=== PATIENT | female | born 1955 | race Caucasian/White ===

== ENCOUNTER 2018-02-19 05:41 | Day surgery (SDC) | payer OTHER ==
[~2018-02-19] VITALS: Ht 154.9 cm; Wt 47.2 kg
[~2018-02-19 05:41] MED LIST: CIPR-211 PO; FOLI-43 PO; LACT10SO6 PO; PRO40 PO; PROP10TA10 PO; SPIR50TA26 PO; TYC3 PO
[2018-02-19] MEDS ORDERED: CEFAZOLIN 1 GM IVPB PREMIX 50 ML IV ONE (06:49)
[2018-02-19] MEDS ORDERED: CEFAZOLIN SOD 1 GM/ ISO 50 ML PREMIX IV ONE (07:00)
[2018-02-19] MEDS ORDERED: NS IRRIG SOLN 1000 ML IR ONE (07:30)
[2018-02-19] MEDS ORDERED: MIDAZOLAM HCL 5 MG/5 ML VIAL IVP ONE (07:30)
[2018-02-19] MEDS ORDERED: PROPOFOL 200MG/ 20ML VIAL (DIPRIVAN) IV ONE (07:30)
[2018-02-19] MEDS ORDERED: NEOSTIGMINE METHYLSULFATE 1 MG/ML, 10 ML VIAL IVP ONE (07:30)
[2018-02-19] MEDS ORDERED: fentaNYL CITRATE/PF 100 MCG/2 ML AMP IVP ONE (07:30)
[2018-02-19] MEDS ORDERED: ROCURONIUM BROMIDE 10 MG/ML (ZEMURON) IV ONE (07:30)
[2018-02-19] MEDS ORDERED: GLYCOPYRROLATE 0.2 MG/ML VIAL IJ ONE (07:30)
[2018-02-19] MEDS ORDERED: SEVOFLURANE 15 MIN GAS INH ONE (07:30)
[2018-02-19] MEDS ORDERED: LR 1,000 ML IV.SOLN IV ONE (07:30)
[2018-02-19] MEDS ORDERED: BUPIVACAINE /PF 0.25% 30 ML VIAL INJ ONE (07:30)
[2018-02-19] MEDS ORDERED: DEXAMETHASONE SOD PHOSPHATE 4 MG/ML VIAL IVP ONE (07:30)
[2018-02-19] MEDS ORDERED: IOHEXOL 50 ML IV ONE (07:48)
[2018-02-19] MEDS ORDERED: fentaNYL CITRATE/PF 100 MCG/2 ML AMP IVP PRN ×2 (08:15)
[2018-02-19] MEDS ORDERED: ONDANSETRON HCL 4 MG/2 ML VIAL IVP PRN (08:15)
[2018-02-19] MEDS ORDERED: D5/0.45 NS 1,000 ML IV SCH (09:03)
[2018-02-19] MEDS ORDERED: HYDROmorphone 1 MG INJ. 1 MG/ML AMPUL IVP PRN (09:15)
[2018-02-19] MEDS ORDERED: HYDROcodone/ACETAMIN 5-325 MG TAB (NORCO/ VICODIN) PO PRN ×2 (09:15)
[2018-02-19 10:07] VITALS: BP_SYST 134
== END 2018-02-19 11:50 | disposition home or self-care (01) ==
LOC: SDS 05:41 → SMU 05:41 → SDS 11:50
PROVIDERS: ATTEND Colon & Rectal Surgery
DX: K80.12 Calculus of gallbladder with acute and chronic cholecystitis without obstruction (principal); K74.69 Other cirrhosis of liver; F40.240 Claustrophobia; E53.8 Deficiency of other specified B group vitamins; E55.9 Vitamin D deficiency, unspecified; N18.4 Chronic kidney disease, stage 4 (severe); Z98.890 Other specified postprocedural states; Z90.49 Acquired absence of other specified parts of digestive tract; Z79.899 Other long term (current) drug therapy
CPT/HCPCS: 47379; 47563; 76000; 88304; 88307; 88313; C1727; C1758; J0690; J1100; J2250; J2704; J2710; J3010; J3490 ×2; J7120; Q9967

== ENCOUNTER 2019-05-24 07:27 | Inpatient (IN) | payer OTHER ==
[~2019-05-24] VITALS: Ht 154.9 cm; Wt 48.1 kg
[~2019-05-24 07:27] MED LIST changes: -SPIR50TA26 PO; +SPIR50TA5 PO
[2019-05-24 07:35] VITALS: BP_SYST 148
[2019-05-24] MEDS ORDERED: NACL 0.9% 1,000 ML IV ONE ×2 (07:45→08:30)
[2019-05-24] MEDS ORDERED: ONDANSETRON HCL 4 MG/2 ML VIAL IVP ONE (07:45)
[2019-05-24 08:00] LABS: BASOPHILS % (AUTO) 0.2 % (0.0-2.0); HEMATOCRIT 38.3 % (36-48); LYMPHOCYTES # (AUTO) 0.7 K/uL (1.0-5.5); LYMPHOCYTES % (AUTO) 6.5 % (20.5-51.5); MEAN CORPUSCULAR HEMOGLOBIN 32 pg (27-31); MEAN CORPUSCULAR HGB CONC 34 % (32-36); MEAN CORPUSCULAR VOLUME 95 fL (79.0-98.0); MONOCYTES # (AUTO) 0.6 K/uL (0.0-1.0); MONOCYTES % (AUTO) 5.7 % (1.7-9.3); NEUTROPHILS # (AUTO) 9.2 K/uL (1.8-7.7); NEUTROPHILS % (AUTO) 87.6 % (40.0-70.0); PLATELET COUNT (AUTO) 207 K/uL (130-430); RED BLOOD CELL COUNT(AUTO) 4.03 MIL/uL (4.2-6.2); RED CELL DISTRIBUTION WIDTH 13.4 % (9.0-15.0); WHITE BLOOD COUNT (AUTO) 10.5 K/uL (4.8-10.8)
[2019-05-24 08:15] LABS: CALCIUM 9.6 mg/dL (8.4-11.0); CREATININE 1.08 mg/dL (0.55-1.30); POTASSIUM 3.7 mmol/L (3.5-5.1)
[2019-05-24 08:19] LABS: ALBUMIN 4.4 g/dL (3.4-4.8)
[2019-05-24] MEDS ORDERED: MORPHINE 4 MG/ML INJ. SYRINGE IVP ONE (08:30)
[2019-05-24] MEDS ORDERED: THIA100T70 PO (08:55)
[2019-05-24] MEDS ORDERED: FERR140T2 PO (08:55)
[2019-05-24] MEDS ORDERED: VITD2000 PO (08:55)
[2019-05-24] MEDS ORDERED: CIPR-211 PO (08:55)
[2019-05-24] MEDS ORDERED: CYAN100010 PO (08:55)
[2019-05-24] MEDS ORDERED: METOCLOPRAMIDE HCL 10 MG/2 ML VIAL IVP PRN (10:00)
[2019-05-24 10:02] VITALS: BP_SYST 126
[2019-05-24 10:08] LABS: PROTHROMBIN TIME 9.8 SECS (9.5-12.5)
[2019-05-24] MEDS ORDERED: GASTROGRAFIN 120 ML ONE (11:02)
[2019-05-24] MEDS: ONDANSETRON HCL 4 MG/2 ML VIAL IVP PRN ×2 (13:01→20:34)
[2019-05-24] MEDS: D5NS 1,000 ML IV SCH ×2 (13:04→23:10)
[2019-05-24 20:00] VITALS: BP_SYST 155
[2019-05-24] MEDS: MORPHINE 4 MG/ML INJ. SYRINGE IVP PRN (20:33)
[2019-05-24] MEDS ORDERED: PIPERACILLIN/TAZOBACTAM 3.375 GM/VIAL (ZOSYN) IV ONE (23:04)
[2019-05-24] MEDS: PIPERACILLIN/TAZO 3.375/DEX-IS 50 ML IV SCH (23:10)
[2019-05-25 00:45] VITALS: BP_SYST 125
[2019-05-25 01:10] LABS: BILIRUBIN,URINE NEGATIVE (NEGATIVE); BLOOD, URINE 1+ (NEGATIVE); CLARITY/URINE CLEAR (CLEAR); COLOR,URINE YELLOW (YELLOW); GLUCOSE,URINE NEGATIVE (NEGATIVE); KETONES,URINE 1+ (NEGATIVE); LEUKOCYTE ESTERASE ,URINE NEGATIVE (NEGATIVE); NITRITE, URINE NEGATIVE (NEGATIVE); PROTEIN URINE 2+ (NEGATIVE); UROBILINOGEN,URINE 0.2 (0.2-1.0)
[2019-05-25 01:20] LABS: BACTERIA,URINE FEW /HPF (None Seen); WBC,URINE 0-3 /HPF (0-3)
[2019-05-25 01:21] LABS: HYALINE CASTS, URINE 0-10 /LPF (None Seen)
[2019-05-25] MEDS: D5NS 1,000 ML IV SCH ×4 (01:59→21:42)
[2019-05-25] MEDS: PIPERACILLIN/TAZO 3.375/DEX-IS 50 ML IV SCH ×4 (05:05→21:42)
[2019-05-25] MEDS: MORPHINE 4 MG/ML INJ. SYRINGE IVP PRN ×2 (06:56→19:50)
[2019-05-25 07:28] LABS: BASOPHILS % (AUTO) 0.2 % (0.0-2.0); EOSINOPHILS % (AUTO) 0.1 % (0.0-4.0); HEMATOCRIT 37.6 % (36-48); HEMOGLOBIN 12.6 g/dL (12.0-16.0); LYMPHOCYTES # (AUTO) 0.7 K/uL (1.0-5.5); LYMPHOCYTES % (AUTO) 7.7 % (20.5-51.5); MEAN CORPUSCULAR HEMOGLOBIN 32 pg (27-31); MEAN CORPUSCULAR HGB CONC 34 % (32-36); MEAN CORPUSCULAR VOLUME 95 fL (79.0-98.0); MONOCYTES # (AUTO) 0.8 K/uL (0.0-1.0); MONOCYTES % (AUTO) 8.7 % (1.7-9.3); NEUTROPHILS # (AUTO) 7.4 K/uL (1.8-7.7); NEUTROPHILS % (AUTO) 83.3 % (40.0-70.0); PLATELET COUNT (AUTO) 172 K/uL (130-430); RED BLOOD CELL COUNT(AUTO) 3.96 MIL/uL (4.2-6.2); RED CELL DISTRIBUTION WIDTH 13.5 % (9.0-15.0); WHITE BLOOD COUNT (AUTO) 8.8 K/uL (4.8-10.8)
[2019-05-25 08:18] LABS: ALBUMIN 3.2 g/dL (3.4-4.8); CALCIUM 8.6 mg/dL (8.4-11.0); POTASSIUM 3.6 mmol/L (3.5-5.1); TOTAL BILIRUBIN 1.2 mg/dL (0.0-1.0)
[2019-05-25 08:24] VITALS: BP_SYST 119
[2019-05-25] MEDS ORDERED: ePHEDrine sulfate 50 MG/ML VIAL IVP ONE (11:20)
[2019-05-25] MEDS ORDERED: ONDANSETRON HCL 4 MG/2 ML VIAL IVP ONE (11:20)
[2019-05-25] MEDS ORDERED: fentaNYL CITRATE/PF 100 MCG/2 ML AMP IVP ONE (11:20)
[2019-05-25] MEDS ORDERED: PROPOFOL 200MG/ 20ML VIAL (DIPRIVAN) IV ONE (11:20)
[2019-05-25] MEDS ORDERED: GLYCOPYRROLATE 0.2 MG/ML VIAL IJ ONE (11:20)
[2019-05-25] MEDS ORDERED: NEOSTIGMINE METHYLSULFATE 1 MG/ML, 10 ML VIAL IVP ONE (11:20)
[2019-05-25] MEDS ORDERED: MIDAZOLAM HCL 5 MG/5 ML VIAL IVP ONE (11:20)
[2019-05-25] MEDS ORDERED: LR 1,000 ML IV.SOLN IV ONE (11:20)
[2019-05-25] MEDS ORDERED: NS IRRIG SOLN 1000 ML IR ONE (11:20)
[2019-05-25] MEDS ORDERED: BUPIVACAINE /PF 0.25% 30 ML VIAL INJ ONE (11:20)
[2019-05-25] MEDS ORDERED: ROCURONIUM BROMIDE 10 MG/ML (ZEMURON) IV ONE (11:20)
[2019-05-25] MEDS ORDERED: SEVOFLURANE 15 MIN GAS INH ONE (11:20)
[2019-05-25] MEDS ORDERED: fentaNYL CITRATE 250 MCG/5 ML AMP IV ONE (11:20)
[2019-05-25] MEDS ORDERED: BUPIVACAINE LIPOSOME/PF 266 MG/20 ML VIAL INFIL ONE (12:38)
[2019-05-25] MEDS ORDERED: LR 1,000 ML IV SCH (13:06)
[2019-05-25] MEDS ORDERED: METOCLOPRAMIDE HCL 10 MG/2 ML VIAL IVP PRN (13:15)
[2019-05-25] MEDS ORDERED: MORPHINE 4 MG/ML INJ. SYRINGE IVP PRN ×3 (13:15)
[2019-05-25 15:15] VITALS: BP_SYST 118
[2019-05-25 20:00] VITALS: BP_SYST 112
[2019-05-26] MEDS: MORPHINE 4 MG/ML INJ. SYRINGE IVP PRN ×3 (00:13→14:16)
[2019-05-26 00:58] VITALS: BP_SYST 108
[2019-05-26] MEDS: PIPERACILLIN/TAZO 3.375/DEX-IS 50 ML IV SCH ×3 (05:05→22:44)
[2019-05-26] MEDS: MORPHINE 2 MG/ML INJ. SYRINGE IVP PRN ×2 (05:08→18:27)
[2019-05-26 07:18] LABS: BASOPHILS % (AUTO) 0.4 % (0.0-2.0); EOSINOPHILS % (AUTO) 1.1 % (0.0-4.0); HEMATOCRIT 31.2 % (36-48); HEMOGLOBIN 10.5 g/dL (12.0-16.0); LYMPHOCYTES # (AUTO) 0.5 K/uL (1.0-5.5); LYMPHOCYTES % (AUTO) 13.1 % (20.5-51.5); MEAN CORPUSCULAR HEMOGLOBIN 33 pg (27-31); MEAN CORPUSCULAR HGB CONC 34 % (32-36); MEAN CORPUSCULAR VOLUME 96 fL (79.0-98.0); MONOCYTES # (AUTO) 0.4 K/uL (0.0-1.0); MONOCYTES % (AUTO) 11.3 % (1.7-9.3); NEUTROPHILS # (AUTO) 2.9 K/uL (1.8-7.7); NEUTROPHILS % (AUTO) 74.1 % (40.0-70.0); PLATELET COUNT (AUTO) 128 K/uL (130-430); RED BLOOD CELL COUNT(AUTO) 3.24 MIL/uL (4.2-6.2); RED CELL DISTRIBUTION WIDTH 13.3 % (9.0-15.0)
[2019-05-26 07:40] LABS: CALCIUM 7.5 mg/dL (8.4-11.0); CREATININE 0.9 mg/dL (0.55-1.30); POTASSIUM 3.6 mmol/L (3.5-5.1); TOTAL BILIRUBIN 1.2 mg/dL (0.0-1.0)
[2019-05-26 08:02] VITALS: BP_SYST 92
[2019-05-26] MEDS: D5NS 1,000 ML IV SCH ×2 (08:36→17:34)
[2019-05-26 12:48] VITALS: BP_SYST 91
[2019-05-26 16:34] VITALS: BP_SYST 114
[2019-05-26 20:00] VITALS: BP_SYST 128
[2019-05-27 00:01] VITALS: BP_SYST 125
[2019-05-27] MEDS: MORPHINE 2 MG/ML INJ. SYRINGE IVP PRN ×2 (00:42→12:51)
[2019-05-27] MEDS: D5NS 1,000 ML IV SCH ×3 (02:49→21:21)
[2019-05-27 05:00] VITALS: BP_SYST 116
[2019-05-27 05:51] LABS: BASOPHILS % (AUTO) 0.1 % (0.0-2.0); HEMATOCRIT 28.3 % (36-48); HEMOGLOBIN 9.5 g/dL (12.0-16.0); LYMPHOCYTES # (AUTO) 0.6 K/uL (1.0-5.5); MEAN CORPUSCULAR HEMOGLOBIN 32 pg (27-31); MEAN CORPUSCULAR HGB CONC 34 % (32-36); MEAN CORPUSCULAR VOLUME 96 fL (79.0-98.0); MONOCYTES # (AUTO) 0.5 K/uL (0.0-1.0); MONOCYTES % (AUTO) 10.9 % (1.7-9.3); NEUTROPHILS # (AUTO) 3.4 K/uL (1.8-7.7); PLATELET COUNT (AUTO) 122 K/uL (130-430); RED BLOOD CELL COUNT(AUTO) 2.94 MIL/uL (4.2-6.2); RED CELL DISTRIBUTION WIDTH 13.1 % (9.0-15.0); WHITE BLOOD COUNT (AUTO) 4.6 K/uL (4.8-10.8)
[2019-05-27 06:14] LABS: CALCIUM 7.6 mg/dL (8.4-11.0); CREATININE 0.94 mg/dL (0.55-1.30); POTASSIUM 3.2 mmol/L (3.5-5.1); TOTAL BILIRUBIN 0.9 mg/dL (0.0-1.0)
[2019-05-27 08:15] VITALS: BP_SYST 109
[2019-05-27 12:17] VITALS: BP_SYST 121
[2019-05-27] MEDS: PIPERACILLIN/TAZO 3.375/DEX-IS 50 ML IV SCH ×2 (14:12→21:24)
[2019-05-27 16:49] VITALS: BP_SYST 124
[2019-05-27] MEDS ORDERED: POTASSIUM CHLORIDE 20 MEQ TAB.PRT.SR PO ONE (19:00)
[2019-05-27] MEDS ORDERED: IBUPROFEN 200 MG TABLET PO SCH (19:00)
[2019-05-27 20:18] VITALS: BP_SYST 149
[2019-05-27] MEDS: SUCRALFATE 1 GM TABLET PO SCH (21:22)
[2019-05-27] MEDS: HYDROcodone/ACETAMIN 5-325 MG TAB (NORCO/ VICODIN) PO PRN (21:23)
[2019-05-28 00:59] VITALS: BP_SYST 137
[2019-05-28] MEDS: D5NS 1,000 ML IV SCH ×3 (01:59→16:46)
[2019-05-28] MEDS: ONDANSETRON HCL 4 MG/2 ML VIAL IVP PRN ×2 (03:29→12:02)
[2019-05-28] MEDS: PIPERACILLIN/TAZO 3.375/DEX-IS 50 ML IV SCH (05:12)
[2019-05-28] MEDS: SUCRALFATE 1 GM TABLET PO SCH ×4 (06:26→20:56)
[2019-05-28 07:30] VITALS: BP_SYST 143
[2019-05-28 10:46] LABS: CALCIUM 8.1 mg/dL (8.4-11.0); CREATININE 0.86 mg/dL (0.55-1.30)
[2019-05-28 10:49] LABS: POTASSIUM 2.8 mmol/L (3.5-5.1)
[2019-05-28] MEDS ORDERED: POTASSIUM CHLORIDE 20 MEQ TAB.PRT.SR PO ONE ×2 (11:30→16:00)
[2019-05-28 12:21] VITALS: BP_SYST 145
[2019-05-28 16:31] VITALS: BP_SYST 140
[2019-05-28 20:00] VITALS: BP_SYST 153
[2019-05-28] MEDS: HYDROcodone/ACETAMIN 5-325 MG TAB (NORCO/ VICODIN) PO PRN (23:21)
[2019-05-29 01:25] VITALS: BP_SYST 149
[2019-05-29 06:10] LABS: BASOPHILS % (AUTO) 0.3 % (0.0-2.0); EOSINOPHILS # (AUTO) 0.1 K/uL (0.0-0.4); EOSINOPHILS % (AUTO) 1.5 % (0.0-4.0); HEMATOCRIT 29.5 % (36-48); HEMOGLOBIN 10.1 g/dL (12.0-16.0); LYMPHOCYTES # (AUTO) 0.8 K/uL (1.0-5.5); LYMPHOCYTES % (AUTO) 17.4 % (20.5-51.5); MEAN CORPUSCULAR HEMOGLOBIN 32 pg (27-31); MEAN CORPUSCULAR HGB CONC 34 % (32-36); MEAN CORPUSCULAR VOLUME 94 fL (79.0-98.0); MONOCYTES # (AUTO) 0.5 K/uL (0.0-1.0); MONOCYTES % (AUTO) 10.5 % (1.7-9.3); NEUTROPHILS # (AUTO) 3.1 K/uL (1.8-7.7); NEUTROPHILS % (AUTO) 70.3 % (40.0-70.0); PLATELET COUNT (AUTO) 192 K/uL (130-430); RED BLOOD CELL COUNT(AUTO) 3.15 MIL/uL (4.2-6.2); RED CELL DISTRIBUTION WIDTH 12.8 % (9.0-15.0); WHITE BLOOD COUNT (AUTO) 4.4 K/uL (4.8-10.8)
[2019-05-29] MEDS: D5NS 1,000 ML IV SCH (06:30)
[2019-05-29 06:33] LABS: CREATININE 0.75 mg/dL (0.55-1.30); POTASSIUM 3.2 mmol/L (3.5-5.1); TOTAL BILIRUBIN 0.5 mg/dL (0.0-1.0)
[2019-05-29] MEDS ORDERED: PANTOPRAZOLE SODIUM 40 MG TAB PO SCH (09:00)
[2019-05-29 09:01] VITALS: BP_SYST 146
[2019-05-29 11:24] VITALS: BP_SYST 141
[2019-05-29] MEDS: POTASSIUM CHLORIDE 20 MEQ TAB.PRT.SR PO SCH ×2 (11:56→14:57)
[2019-05-29 15:50] VITALS: BP_SYST 138
[2019-05-29] MEDS ORDERED: BISACODYL 10 MG/SUPPOSITORY RC ONE (17:45)
[2019-05-29 18:24] VITALS: BP_SYST 138
== END 2019-05-29 19:33 | disposition home or self-care (01) | DRG 331 ==
LOC: SED 07:27 → SMU 09:28
PROVIDERS: ADMIT Internal Medicine Hospice and Palliative Medicine; ATTEND Internal Medicine Hospice and Palliative Medicine
PROC: 0DJD4ZZ Inspection of Lower Intestinal Tract, Percutaneous Endoscopic Approach (ICD-10-PCS; 2019-05-25)
PROC: 0DTF0ZZ Resection of Right Large Intestine, Open Approach (ICD-10-PCS; principal; 2019-05-25 11:21)
DX: K56.609 Unspecified intestinal obstruction, unspecified as to partial versus complete obstruction (principal); K74.60 Unspecified cirrhosis of liver; K43.2 Incisional hernia without obstruction or gangrene; K21.9 Gastro-esophageal reflux disease without esophagitis; K56.2 Volvulus; Z53.31 Laparoscopic surgical procedure converted to open procedure; Z90.49 Acquired absence of other specified parts of digestive tract; Z79.899 Other long term (current) drug therapy
CPT/HCPCS: 36415; 71045; 74250-TC; 80048; 80053; 81000-TC; 83690-TC; 85025; 85610-TC; 85730-TC; 86886; 86900; 86901; 87081; 88307; 93005; 96361; 96374; 96375; 99285; C1727; C9290; J2250; J2270; J2405; J2543; J2704; J2710; J3010; J3490; J7030; J7042; J7120; Q9963

== ENCOUNTER 2024-08-15 14:54 | Inpatient (IN) | payer BC, OTHER ==
[~2024-08-15] VITALS: Ht 154.9 cm; Wt 49.0 kg
[~2024-08-15 14:54] MED LIST changes: -CIPR-211 PO; +CIPR500T5 PO; +CYAN100010 PO; +FERR140T2 PO; +THIA100T70 PO; -TYC3 PO; +VITD2000 PO
[2024-08-15 15:00] VITALS: BP_SYST 148; PULSE 81; RESP 20; TEMP 97.3; O2SAT 98
[2024-08-15 15:50] LABS: BASOPHILS # (AUTO) 0.1 K/uL (0.0-0.2); BASOPHILS % (AUTO) 1.2 % (0.0-2.0); EOSINOPHILS % (AUTO) 0.2 % (0.0-4.0); HEMATOCRIT 32.2 % (36-48); HEMOGLOBIN 11.3 g/dL (12.0-16.0); LYMPHOCYTES # (AUTO) 0.7 K/uL (1.0-5.5); LYMPHOCYTES % (AUTO) 8.8 % (20.5-51.5); MEAN CORPUSCULAR HEMOGLOBIN 33 pg (27-31); MEAN CORPUSCULAR HGB CONC 35 % (32-36); MEAN CORPUSCULAR VOLUME 93 fL (79.0-98.0); MONOCYTES # (AUTO) 0.2 K/uL (0.0-1.0); MONOCYTES % (AUTO) 2.6 % (1.7-9.3); NEUTROPHILS # (AUTO) 6.9 K/uL (1.8-7.7); NEUTROPHILS % (AUTO) 87.2 % (40.0-70.0); PLATELET COUNT (AUTO) 250 K/uL (130-430); RED BLOOD CELL COUNT(AUTO) 3.47 MIL/uL (4.2-6.2); RED CELL DISTRIBUTION WIDTH 12.6 % (9.0-15.0); WHITE BLOOD COUNT (AUTO) 7.9 K/uL (4.8-10.8)
[2024-08-15 15:59] LABS: BILIRUBIN,URINE 1+ (NEGATIVE); BLOOD, URINE NEGATIVE (NEGATIVE); CLARITY/URINE CLEAR (CLEAR); COLOR,URINE YELLOW (YELLOW); GLUCOSE,URINE NEGATIVE (NEGATIVE); KETONES,URINE 2+ (NEGATIVE); LEUKOCYTE ESTERASE ,URINE NEGATIVE (NEGATIVE); NITRITE, URINE NEGATIVE (NEGATIVE); PROTEIN URINE TRACE (NEGATIVE); UROBILINOGEN,URINE 0.2 (0.2-1.0)
[2024-08-15 16:05] LABS: PROTHROMBIN TIME 10.3 SECS (9.5-12.5)
[2024-08-15 16:12] LABS: ALANINE AMINOTRANSFERASE 24 U/L (12-78); ALBUMIN 4.6 g/dL (3.4-4.8); AMYLASE 84 U/L (0-100); ANION GAP 16 (5-15); ASPARTATE AMINOTRANSFERASE 30 U/L (10-37); BILIRUBIN,DIRECT 0.2 mg/dL (0.0-0.3); CALCIUM 9.7 mg/dL (8.4-11.0); CARBON DIOXIDE 20 mmol/L (23-29); CHLORIDE 103 mmol/L (98-107); CREATININE 1.73 mg/dL (0.55-1.30); GFR AFRICAN AMERICAN 38 mL/min (>90); GLUCOSE 123 mg/dL (74-106); LIPASE 89 U/L (16-77); POTASSIUM 4.8 mmol/L (3.5-5.1); SODIUM SERUM 139 mmol/L (136-145); TOTAL BILIRUBIN 0.7 mg/dL (0.0-1.0); UREA NITROGEN, BLOOD 32 mg/dL (8-21)
[2024-08-15 16:13] LABS: GFR NON AFRICAN-AMERICAN 31 mL/min (>90)
[2024-08-15 16:43] LABS: BACTERIA,URINE RARE /HPF (None Seen); RBC,URINE NONE SEEN /HPF (0-3); WBC,URINE 0-3 /HPF (0-3)
[2024-08-15 16:44] LABS: FINE GRANULAR CASTS,URINE 0-10 /LPF (None Seen); MUCUS,URINE 1+ /LPF (None Seen)
[2024-08-15] MEDS ORDERED: MAGNESIUM SULFATE 50 ML IV PRN (17:15)
[2024-08-15] MEDS ORDERED: MUPIROCIN 2% TOPICAL OINTMENT 22 GM NS PRN (17:15)
[2024-08-15] MEDS ORDERED: ZOLPIDEM TARTRATE 5 MG TABLET PO PRN (17:15)
[2024-08-15] MEDS ORDERED: DOCUSATE SODIUM 100 MG CAPSULE PO PRN (17:15)
[2024-08-15] MEDS ORDERED: POTASSIUM CHLORIDE 20 MEQ TABLET.ER PO PRN (17:15)
[2024-08-15] MEDS ORDERED: LORazepam 2 MG/ML VIAL IVP PRN (17:15)
[2024-08-15] MEDS ORDERED: cloNIDine HCL 0.2 MG TABLET PO PRN (17:30)
[2024-08-15] MEDS ORDERED: LISI-209 PO (17:43)
[2024-08-15] MEDS ORDERED: ACETAMINOPHEN 500 MG TABLET PO PRN ×2 (17:45)
[2024-08-15] MEDS: NACL 0.9% 1,000 ML IV ONE (17:48)
[2024-08-15] MEDS: MORPHINE 2 MG/ML INJ. SYRINGE IVP ONE (17:48)
[2024-08-15] MEDS: D5NS 1,000 ML IV SCH (18:34)
[2024-08-15] MEDS: HEPARIN SODIUM,PORCINE 5,000 UNITS/ML VIAL SUBCUT SCH (23:00)
[2024-08-15] MEDS ORDERED: GASTROGRAFIN 120 ML ONE (23:09)
[2024-08-16 00:43] VITALS: BP_SYST 109; PULSE 80; RESP 18; TEMP 98.1; O2SAT 100
[2024-08-16] MEDS: MORPHINE 2 MG/ML INJ. SYRINGE IVP PRN ×2 (01:17→08:46)
[2024-08-16] MEDS: ONDANSETRON HCL 4 MG/2 ML VIAL IVP PRN (01:25)
[2024-08-16 05:36] LABS: BASOPHILS % (AUTO) 0.2 % (0.0-2.0); HEMATOCRIT 30.7 % (36-48); HEMOGLOBIN 10.5 g/dL (12.0-16.0); LYMPHOCYTES % (AUTO) 12.9 % (20.5-51.5); MEAN CORPUSCULAR HEMOGLOBIN 32 pg (27-31); MEAN CORPUSCULAR HGB CONC 34 % (32-36); MEAN CORPUSCULAR VOLUME 93 fL (79.0-98.0); MONOCYTES # (AUTO) 0.5 K/uL (0.0-1.0); MONOCYTES % (AUTO) 6.8 % (1.7-9.3); NEUTROPHILS # (AUTO) 6.1 K/uL (1.8-7.7); NEUTROPHILS % (AUTO) 80.1 % (40.0-70.0); PLATELET COUNT (AUTO) 221 K/uL (130-430); RED BLOOD CELL COUNT(AUTO) 3.31 MIL/uL (4.2-6.2); RED CELL DISTRIBUTION WIDTH 12.6 % (9.0-15.0); WHITE BLOOD COUNT (AUTO) 7.6 K/uL (4.8-10.8)
[2024-08-16 05:54] LABS: CREATININE 1.42 mg/dL (0.55-1.30); POTASSIUM 4.5 mmol/L (3.5-5.1)
[2024-08-16 08:00] VITALS: BP_SYST 135; PULSE 78; RESP 17; TEMP 98.7; O2SAT 98
[2024-08-16 12:00] VITALS: BP_SYST 156; PULSE 81; RESP 18; TEMP 98.3; O2SAT 99
[2024-08-16 16:00] VITALS: BP_SYST 127; PULSE 77; RESP 18; TEMP 98.4; O2SAT 99
[2024-08-16 20:00] VITALS: BP_SYST 157; PULSE 83; RESP 18; TEMP 97.8; O2SAT 99
[2024-08-17 07:58] LABS: BASOPHILS % (AUTO) 0.2 % (0.0-2.0); EOSINOPHILS % (AUTO) 0.1 % (0.0-4.0); HEMATOCRIT 34.9 % (36-48); HEMOGLOBIN 11.6 g/dL (12.0-16.0); LYMPHOCYTES # (AUTO) 0.9 K/uL (1.0-5.5); LYMPHOCYTES % (AUTO) 10.2 % (20.5-51.5); MEAN CORPUSCULAR HEMOGLOBIN 31 pg (27-31); MEAN CORPUSCULAR HGB CONC 33 % (32-36); MEAN CORPUSCULAR VOLUME 94 fL (79.0-98.0); MONOCYTES # (AUTO) 0.9 K/uL (0.0-1.0); MONOCYTES % (AUTO) 9.2 % (1.7-9.3); NEUTROPHILS # (AUTO) 7.5 K/uL (1.8-7.7); NEUTROPHILS % (AUTO) 80.3 % (40.0-70.0); PLATELET COUNT (AUTO) 270 K/uL (130-430); RED BLOOD CELL COUNT(AUTO) 3.72 MIL/uL (4.2-6.2); RED CELL DISTRIBUTION WIDTH 12.7 % (9.0-15.0); WHITE BLOOD COUNT (AUTO) 9.3 K/uL (4.8-10.8)
[2024-08-17 08:00] VITALS: BP_SYST 144; PULSE 80; RESP 18; TEMP 98.1; O2SAT 98
[2024-08-17 08:20] LABS: CALCIUM 9.1 mg/dL (8.4-11.0); CREATININE 1.62 mg/dL (0.55-1.30); POTASSIUM 5.2 mmol/L (3.5-5.1)
[2024-08-17 13:44] VITALS: BP_SYST 156; PULSE 76; RESP 20; TEMP 98.1; O2SAT 99
[2024-08-17] MEDS ORDERED: DEXTROSE 50% JECT 50 ML DISP.SYRIN IVP PRN (13:45)
[2024-08-17] MEDS ORDERED: *PPN PER PHARMACY XX PRN (13:45)
[2024-08-17] MEDS ORDERED: INSULIN REGULAR, HUMAN 100 UNITS/ML, 3 ML VIAL (humuLIN R) SUBCUT PRN (13:45)
[2024-08-17 17:23] VITALS: BP_SYST 145; PULSE 83; RESP 16; TEMP 98; O2SAT 99
[2024-08-17 20:00] VITALS: BP_SYST 153; PULSE 78; RESP 17; TEMP 97.8; O2SAT 99
[2024-08-18] VITALS: BP_SYST 149; PULSE 81; RESP 16; TEMP 97.6; O2SAT 98
[2024-08-18 06:59] LABS: BASOPHILS % (AUTO) 0.4 % (0.0-2.0); EOSINOPHILS % (AUTO) 0.4 % (0.0-4.0); HEMATOCRIT 33.3 % (36-48); HEMOGLOBIN 11.2 g/dL (12.0-16.0); LYMPHOCYTES # (AUTO) 0.9 K/uL (1.0-5.5); MEAN CORPUSCULAR HEMOGLOBIN 31 pg (27-31); MEAN CORPUSCULAR HGB CONC 34 % (32-36); MEAN CORPUSCULAR VOLUME 94 fL (79.0-98.0); MONOCYTES # (AUTO) 0.7 K/uL (0.0-1.0); MONOCYTES % (AUTO) 14.1 % (1.7-9.3); NEUTROPHILS # (AUTO) 3.3 K/uL (1.8-7.7); NEUTROPHILS % (AUTO) 66.1 % (40.0-70.0); PLATELET COUNT (AUTO) 242 K/uL (130-430); RED BLOOD CELL COUNT(AUTO) 3.56 MIL/uL (4.2-6.2); RED CELL DISTRIBUTION WIDTH 12.6 % (9.0-15.0); WHITE BLOOD COUNT (AUTO) 4.9 K/uL (4.8-10.8)
[2024-08-18 07:12] LABS: CALCIUM 8.8 mg/dL (8.4-11.0); CREATININE 1.39 mg/dL (0.55-1.30); PHOSPHORUS 2.5 mg/dL (2.7-4.5); POTASSIUM 4.4 mmol/L (3.5-5.1)
[2024-08-18 08:00] VITALS: BP_SYST 144; PULSE 85; RESP 16; TEMP 97.6; O2SAT 100
[2024-08-18 09:16] LABS: PROTHROMBIN TIME 10.3 SECS (9.5-12.5)
[2024-08-18 10:42] VITALS: O2SAT 100
[2024-08-18 12:37] VITALS: BP_SYST 144; PULSE 85; RESP 16; TEMP 97.6; O2SAT 100
[2024-08-18 15:25] VITALS: BP_SYST 136; PULSE 78; RESP 16; TEMP 97.4; O2SAT 97
[2024-08-18 16:01] LABS: INR 2.5 (0.8-1.2); PROTHROMBIN TIME 25.2 SECS (9.5-12.5)
[2024-08-18 20:00] VITALS: BP_SYST 149; PULSE 81; RESP 17; TEMP 98
[2024-08-18] MEDS: MVI IV SCH (22:41)
[2024-08-18] MEDS: TPN PERIPHERAL IV SCH (22:41)
[2024-08-18] MEDS: [UNRECOGNIZED DRUG - OTHER] IV SCH (22:41)
[2024-08-18] MEDS: K PHOS IV SCH (22:41)
[2024-08-18] MEDS: TRACE ELEMENTS IV SCH (22:41)
[2024-08-19] VITALS: BP_SYST 141; PULSE 79; RESP 16; TEMP 97.8; O2SAT 96
[2024-08-19 05:50] LABS: BASOPHILS % (AUTO) 0.4 % (0.0-2.0); EOSINOPHILS # (AUTO) 0.1 K/uL (0.0-0.4); EOSINOPHILS % (AUTO) 2.1 % (0.0-4.0); HEMATOCRIT 32.9 % (36-48); HEMOGLOBIN 10.9 g/dL (12.0-16.0); LYMPHOCYTES # (AUTO) 0.9 K/uL (1.0-5.5); LYMPHOCYTES % (AUTO) 22.2 % (20.5-51.5); MEAN CORPUSCULAR HEMOGLOBIN 31 pg (27-31); MEAN CORPUSCULAR HGB CONC 33 % (32-36); MEAN CORPUSCULAR VOLUME 94 fL (79.0-98.0); MONOCYTES # (AUTO) 0.8 K/uL (0.0-1.0); MONOCYTES % (AUTO) 20.3 % (1.7-9.3); NEUTROPHILS # (AUTO) 2.1 K/uL (1.8-7.7); PLATELET COUNT (AUTO) 234 K/uL (130-430); RED CELL DISTRIBUTION WIDTH 12.6 % (9.0-15.0); WHITE BLOOD COUNT (AUTO) 3.9 K/uL (4.8-10.8)
[2024-08-19 06:10] LABS: CALCIUM 8.7 mg/dL (8.4-11.0); CREATININE 1.38 mg/dL (0.55-1.30); POTASSIUM 3.5 mmol/L (3.5-5.1)
[2024-08-19 08:00] VITALS: BP_SYST 134; BP_SYST 139; PULSE 80; PULSE 89; RESP 17; RESP 18; TEMP 97.9; O2SAT 95; O2SAT 98
[2024-08-19 09:36] LABS: PROTHROMBIN TIME 10.2 SECS (9.5-12.5)
[2024-08-19] MEDS: PHYTONADIONE 10 MG in NS 50 ML IV ONE (09:45)
[2024-08-19] MEDS ORDERED: LIDOCAINE HCL/PF 1% 10 ML AMPUL INJ ONE (10:27)
[2024-08-19] MEDS ORDERED: ceFAZolin SODIUM 1 GM VIAL ONE (10:27)
[2024-08-19] MEDS ORDERED: ONDANSETRON HCL 4 MG/2 ML VIAL ONE (10:27)
[2024-08-19] MEDS ORDERED: NS IRRIG SOLN 1000 ML IR ONE (10:27)
[2024-08-19] MEDS ORDERED: DESFLURANE 15 MIN GAS INH ONE (10:27)
[2024-08-19] MEDS ORDERED: NS 1000 ML IV.SOLN IV ONE (10:27)
[2024-08-19] MEDS ORDERED: DEXAMETHASONE SOD PHOSPHATE 4 MG/ML VIAL ONE (10:27)
[2024-08-19] MEDS ORDERED: MIDAZOLAM HCL 2 MG/2 ML VIAL (VERSED) ONE (10:27)
[2024-08-19] MEDS ORDERED: PROPOFOL 200MG/ 20ML VIAL (DIPRIVAN) IV ONE (10:27)
[2024-08-19] MEDS ORDERED: LR 1,000 ML IV.SOLN IV ONE (10:27)
[2024-08-19] MEDS ORDERED: ROCURONIUM BROMIDE 10 MG/ML (ZEMURON) ONE (10:27)
[2024-08-19] MEDS ORDERED: fentaNYL CITRATE/PF 100 MCG/2 ML AMP ONE (10:27)
[2024-08-19] MEDS ORDERED: hydrALAZINE HCL 20 MG/ML VIAL IVP PRN (11:15)
[2024-08-19] MEDS ORDERED: LABETALOL 100 MG/ 20ML VIAL IVP PRN (11:15)
[2024-08-19] MEDS ORDERED: LR 1,000 ML IV SCH (11:15)
[2024-08-19] MEDS ORDERED: ONDANSETRON HCL 4 MG/2 ML VIAL IVP PRN (11:15)
[2024-08-19] MEDS ORDERED: MEPERIDINE HCL/PF 25 MG/ML DISP.SYRIN IVP PRN (11:15)
[2024-08-19] MEDS: PANTOPRAZOLE SODIUM 40 MG/VIAL (PROTONIX) IVP ONE (12:45)
[2024-08-19] MEDS: HYDROmorphone 2 MG/ML VIAL ONE (12:54)
[2024-08-19] MEDS: HYDROmorphone 1 MG/ML INJ. CARTRIDGE IVP PRN ×2 (12:55→13:45)
[2024-08-19 16:47] VITALS: BP_SYST 122; PULSE 90; RESP 18; TEMP 98.3; O2SAT 97
[2024-08-19 20:00] VITALS: BP_SYST 115; PULSE 76; RESP 18; TEMP 98.5; O2SAT 99
[2024-08-19] MEDS: FAT EMULSIONS 250 ML IV SCH (21:58)
[2024-08-19] MEDS: [UNRECOGNIZED DRUG - OTHER] IV SCH (22:00)
[2024-08-19] MEDS: POTASSIUM CHLORIDE IV SCH (22:00)
[2024-08-19] MEDS: TPN PERIPHERAL IV SCH (22:00)
[2024-08-19] MEDS: K PHOS IV SCH (22:00)
[2024-08-20 01:20] VITALS: BP_SYST 121; PULSE 76; RESP 17; TEMP 97.7; O2SAT 100
[2024-08-20 06:32] LABS: BASOPHILS % (AUTO) 0.1 % (0.0-2.0); EOSINOPHILS % (AUTO) 0.1 % (0.0-4.0); HEMATOCRIT 29.7 % (36-48); HEMOGLOBIN 10.1 g/dL (12.0-16.0); LYMPHOCYTES # (AUTO) 0.7 K/uL (1.0-5.5); LYMPHOCYTES % (AUTO) 15.3 % (20.5-51.5); MEAN CORPUSCULAR HEMOGLOBIN 32 pg (27-31); MEAN CORPUSCULAR HGB CONC 34 % (32-36); MEAN CORPUSCULAR VOLUME 94 fL (79.0-98.0); MONOCYTES # (AUTO) 0.8 K/uL (0.0-1.0); MONOCYTES % (AUTO) 18.6 % (1.7-9.3); NEUTROPHILS % (AUTO) 65.9 % (40.0-70.0); PLATELET COUNT (AUTO) 193 K/uL (130-430); RED BLOOD CELL COUNT(AUTO) 3.15 MIL/uL (4.2-6.2); RED CELL DISTRIBUTION WIDTH 12.6 % (9.0-15.0); WHITE BLOOD COUNT (AUTO) 4.5 K/uL (4.8-10.8)
[2024-08-20 06:47] LABS: CALCIUM 7.6 mg/dL (8.4-11.0); CREATININE 1.23 mg/dL (0.55-1.30); PHOSPHORUS 1.8 mg/dL (2.7-4.5); POTASSIUM 4.1 mmol/L (3.5-5.1)
[2024-08-20 08:20] VITALS: O2SAT 98
[2024-08-20] MEDS: PANTOPRAZOLE SODIUM 40 MG/VIAL (PROTONIX) IVP SCH (08:54)
[2024-08-20 09:10] VITALS: BP_SYST 122; PULSE 70; RESP 18; TEMP 97.8; O2SAT 99
[2024-08-20 13:53] VITALS: BP_SYST 125; PULSE 83; RESP 14; TEMP 98.9; O2SAT 98
[2024-08-20 14:34] LABS: ALBUMIN 2.5 g/dL (3.4-4.8); BILIRUBIN,DIRECT 0.1 mg/dL (0.0-0.3); TOTAL BILIRUBIN 0.4 mg/dL (0.0-1.0); TOTAL PROTEIN, SERUM 5.6 g/dL (6.4-8.3)
[2024-08-20 16:00] VITALS: BP_SYST 140; PULSE 80; RESP 14; TEMP 98.3; O2SAT 99
[2024-08-20 20:15] VITALS: BP_SYST 123; PULSE 72; RESP 18; TEMP 98; O2SAT 98
[2024-08-20] MEDS: [UNRECOGNIZED DRUG - OTHER] IV SCH (21:36)
[2024-08-20] MEDS: K PHOS IV SCH (21:36)
[2024-08-20] MEDS: POTASSIUM CHLORIDE IV SCH (21:36)
[2024-08-20] MEDS: TPN PERIPHERAL IV SCH (21:36)
[2024-08-21] VITALS (7 sets, daily range): BP systolic 91–136; PULSE 55–91; RESP 16–20; TEMP 97.2–98.9; O2SAT 97–100
[2024-08-21 07:17] LABS: ALBUMIN 2.5 g/dL (3.4-4.8); CALCIUM 7.3 mg/dL (8.4-11.0); CREATININE 0.92 mg/dL (0.55-1.30); PHOSPHORUS 1.2 mg/dL (2.7-4.5); POTASSIUM 3.1 mmol/L (3.5-5.1); TOTAL BILIRUBIN 0.5 mg/dL (0.0-1.0); TOTAL PROTEIN, SERUM 5.5 g/dL (6.4-8.3)
[2024-08-21] MEDS: POTASSIUM CHLORIDE 20 MEQ TABLET.ER PO ONE (13:54)
[2024-08-21] MEDS: POTASSIUM CHLORIDE IV SCH (22:11)
[2024-08-21] MEDS: SODIUM ACETATE IV SCH (22:11)
[2024-08-21] MEDS: [UNRECOGNIZED DRUG - OTHER] IV SCH (22:11)
[2024-08-21] MEDS: TPN PERIPHERAL IV SCH (22:11)
[2024-08-22] VITALS (7 sets, daily range): BP systolic 122–131; PULSE 79–97; RESP 14–22; TEMP 97–98.5; O2SAT 98–100
[2024-08-22 05:39] LABS: BASOPHILS % (AUTO) 0.5 % (0.0-2.0); EOSINOPHILS # (AUTO) 0.2 K/uL (0.0-0.4); EOSINOPHILS % (AUTO) 3.4 % (0.0-4.0); HEMATOCRIT 27.6 % (36-48); HEMOGLOBIN 9.5 g/dL (12.0-16.0); LYMPHOCYTES # (AUTO) 0.8 K/uL (1.0-5.5); LYMPHOCYTES % (AUTO) 18.2 % (20.5-51.5); MEAN CORPUSCULAR HEMOGLOBIN 32 pg (27-31); MEAN CORPUSCULAR HGB CONC 34 % (32-36); MEAN CORPUSCULAR VOLUME 92 fL (79.0-98.0); MONOCYTES # (AUTO) 0.7 K/uL (0.0-1.0); MONOCYTES % (AUTO) 15.2 % (1.7-9.3); NEUTROPHILS # (AUTO) 2.9 K/uL (1.8-7.7); NEUTROPHILS % (AUTO) 62.7 % (40.0-70.0); PLATELET COUNT (AUTO) 211 K/uL (130-430); RED BLOOD CELL COUNT(AUTO) 2.99 MIL/uL (4.2-6.2); RED CELL DISTRIBUTION WIDTH 12.6 % (9.0-15.0); WHITE BLOOD COUNT (AUTO) 4.7 K/uL (4.8-10.8)
[2024-08-22 06:30] LABS: ALBUMIN 2.3 g/dL (3.4-4.8); CALCIUM 7.1 mg/dL (8.4-11.0); CREATININE 0.83 mg/dL (0.55-1.30); PHOSPHORUS 2.3 mg/dL (2.7-4.5); POTASSIUM 3.7 mmol/L (3.5-5.1); TOTAL BILIRUBIN 0.5 mg/dL (0.0-1.0); TOTAL PROTEIN, SERUM 5.6 g/dL (6.4-8.3)
[2024-08-22] MEDS: POTASSIUM CHLORIDE IV SCH (21:59)
[2024-08-22] MEDS: [UNRECOGNIZED DRUG - OTHER] IV SCH (21:59)
[2024-08-22] MEDS: HEPARIN SODIUM,PORCINE 5,000 UNITS/ML VIAL SUBCUT SCH (21:59)
[2024-08-22] MEDS: TPN PERIPHERAL IV SCH (21:59)
[2024-08-22] MEDS: SODIUM ACETATE IV SCH (21:59)
[2024-08-23 00:11] VITALS: BP_SYST 124; PULSE 89; RESP 18; TEMP 97.1; O2SAT 99
[2024-08-23 05:46] LABS: BASOPHILS % (AUTO) 0.4 % (0.0-2.0); EOSINOPHILS # (AUTO) 0.2 K/uL (0.0-0.4); EOSINOPHILS % (AUTO) 2.9 % (0.0-4.0); HEMATOCRIT 27.9 % (36-48); HEMOGLOBIN 9.5 g/dL (12.0-16.0); LYMPHOCYTES # (AUTO) 0.7 K/uL (1.0-5.5); LYMPHOCYTES % (AUTO) 13.8 % (20.5-51.5); MEAN CORPUSCULAR HEMOGLOBIN 32 pg (27-31); MEAN CORPUSCULAR HGB CONC 34 % (32-36); MEAN CORPUSCULAR VOLUME 93 fL (79.0-98.0); MONOCYTES # (AUTO) 0.9 K/uL (0.0-1.0); MONOCYTES % (AUTO) 16.2 % (1.7-9.3); NEUTROPHILS # (AUTO) 3.6 K/uL (1.8-7.7); NEUTROPHILS % (AUTO) 66.7 % (40.0-70.0); PLATELET COUNT (AUTO) 243 K/uL (130-430); RED BLOOD CELL COUNT(AUTO) 3.01 MIL/uL (4.2-6.2); RED CELL DISTRIBUTION WIDTH 12.6 % (9.0-15.0); WHITE BLOOD COUNT (AUTO) 5.4 K/uL (4.8-10.8)
[2024-08-23 06:21] LABS: ALBUMIN 2.4 g/dL (3.4-4.8); CALCIUM 7.1 mg/dL (8.4-11.0); CREATININE 0.8 mg/dL (0.55-1.30); PHOSPHORUS 2.3 mg/dL (2.7-4.5); POTASSIUM 3.6 mmol/L (3.5-5.1); TOTAL BILIRUBIN 0.6 mg/dL (0.0-1.0); TOTAL PROTEIN, SERUM 5.6 g/dL (6.4-8.3)
[2024-08-23 08:00] VITALS: BP_SYST 118; PULSE 85; RESP 16; TEMP 97.9
[2024-08-23 08:30] VITALS: O2SAT 100
[2024-08-23] MEDS ORDERED: *TPN PER PHARMACY XX PRN (10:00)
[2024-08-23] MEDS: KCL 20 mEq in 100 mL (PREMIX) 100 ML IV ONE (13:09)
[2024-08-23 16:00] VITALS: BP_SYST 105; PULSE 97; RESP 16; TEMP 98.7
[2024-08-23 20:00] VITALS: BP_SYST 119; PULSE 81; RESP 18; TEMP 98.7; O2SAT 100
[2024-08-23] MEDS: [UNRECOGNIZED DRUG - OTHER] IV SCH (21:53)
[2024-08-23] MEDS: SODIUM CHLORIDE IV SCH (21:53)
[2024-08-23] MEDS: TPN PERIPHERAL IV SCH (21:53)
[2024-08-23] MEDS: POTASSIUM ACETATE IV SCH (21:53)
[2024-08-24] VITALS (7 sets, daily range): BP systolic 110–135; PULSE 70–89; RESP 15–18; TEMP 97.4–98.6; O2SAT 98–100
[2024-08-24 08:47] LABS: ALBUMIN 2.4 g/dL (3.4-4.8); CALCIUM 7.1 mg/dL (8.4-11.0); CREATININE 0.8 mg/dL (0.55-1.30); PHOSPHORUS 2.5 mg/dL (2.7-4.5); POTASSIUM 3.9 mmol/L (3.5-5.1); TOTAL BILIRUBIN 0.7 mg/dL (0.0-1.0); TOTAL PROTEIN, SERUM 5.7 g/dL (6.4-8.3)
[2024-08-24] MEDS: NORMAL SALINE 5 ML DISP.SYRIN IVF SCH (13:39)
[2024-08-25] VITALS: BP_SYST 122; PULSE 79; RESP 16; TEMP 97.9; O2SAT 100
[2024-08-25 07:40] VITALS: BP_SYST 92; PULSE 79; RESP 15; TEMP 97.9; O2SAT 98
[2024-08-25 08:49] LABS: ALBUMIN 2.3 g/dL (3.4-4.8); CREATININE 0.79 mg/dL (0.55-1.30); POTASSIUM 3.7 mmol/L (3.5-5.1); TOTAL BILIRUBIN 0.5 mg/dL (0.0-1.0); TOTAL PROTEIN, SERUM 5.4 g/dL (6.4-8.3)
[2024-08-25 08:50] LABS: CALCIUM 6.9 mg/dL (8.4-11.0)
[2024-08-25 09:50] VITALS: O2SAT 98
[2024-08-25 11:59] VITALS: BP_SYST 92; PULSE 79; RESP 16; TEMP 97.9; O2SAT 98
[2024-08-25 12:34] VITALS: BP_SYST 101; PULSE 81; RESP 18; TEMP 98.4; O2SAT 100
== END 2024-08-25 14:15 | disposition home or self-care (01) | DRG 335 ==
LOC: SED 14:54 → SMU 17:15
PROVIDERS: ADMIT General Practice; ATTEND General Practice
PROC: 0DN80ZZ Release Small Intestine, Open Approach (ICD-10-PCS; principal; 2024-08-16)
PROC: 0D9670Z Drainage of Stomach with Drainage Device, Via Natural or Artificial Opening (ICD-10-PCS; 2024-08-16)
DX: K56.51 Intestinal adhesions [bands], with partial obstruction (principal); N17.0 Acute kidney failure with tubular necrosis; K42.0 Umbilical hernia with obstruction, without gangrene; N18.4 Chronic kidney disease, stage 4 (severe); K91.89 Other postprocedural complications and disorders of digestive system; K56.7 Ileus, unspecified; E83.51 Hypocalcemia; K70.30 Alcoholic cirrhosis of liver without ascites; Z90.49 Acquired absence of other specified parts of digestive tract
CPT/HCPCS: 36415; 71045; 74018; 74250; 80048; 80053; 80076; 81000; 81001; 81015; 82150; 82948; 83037; 83605; 83690; 83735; 84100; 84484; 85025; 85610; 85730; 86886; 86900; 86901; 88305; 93005; 97110-GP; 97116-GP; 97530-GP; 99285; J0612; J0690; J1100; J1171; J1644; J1815; J2003; J2250; J2270; J2405; J2470; J2704; J3010; J3430; J3475; J3480; J7030; J7042; J7120; J7131; Q9963